=== PATIENT | male | born 1990 | race American Indian/Alaskan Native ===

== ENCOUNTER 2018-08-22 03:58 | Emergency (ER) | payer OTHER ==
[2018-08-22 04:06] VITALS: BP 120/66
--- NOTE | 2018-08-22 04:53 | XRay Report ---
PROCEDURE: XR ANKLE 2V LT HISTORY: pain and swelling FINDINGS: AP and lateral views of the left ankle were acquired. No fracture is seen in the left ankle . There is lateral soft tissue swelling. IMPRESSION: No fracture is seen in the left ankle This document is electronically signed by Sen Carrillo MD., August 22 2018 04:51:41 AM ET
[2018-08-22] MEDS ORDERED: IBUPROFEN PO ONE ×2 (05:07→05:08)
[2018-08-22] MEDS ORDERED: NORCO 5/325 ONE (05:07)
[2018-08-22] MEDS ORDERED: NORCO 5/325 PO ONE (05:08)
--- NOTE | 2018-08-22 05:45 | Emergency Department Report ---
ED Lower Extremity HPI - General Chief Complaint: Extremity Injury, Lower Stated Complaint: ANKLE INJURY Time Seen by Provider: 08/22/18 05:06 Source: patient Mode of arrival: Ambulatory Limitations: No Limitations - Related Data Previous Rx's Medication Instructions Recorded Last Taken Type Cyclobenzaprine [Flexeril] 10 mg PO TID PRN #30 tablet 08/22/18 Unknown Rx Naproxen Sodium [Naproxen Sodium 500 mg PO BID PRN #30 tablet 08/22/18 Unknown Rx 550mg] Allergies Allergy/AdvReac Type Severity Reaction Status Date / Time No Known Allergies Allergy Verified 05/09/15 11:43 ED Review of Systems ROS: Stated complaint: ANKLE INJURY Other details as noted in HPI ED Past Medical Hx - Past Medical History Previous Medical History?: No - Surgical History Past Surgical History?: No - Social History Smoking Status: Former Smoker Substance Use Type: None - Medications Home Medications: Home Medications Medication Instructions Recorded Confirmed Last Taken Type Cyclobenzaprine [Flexeril] 10 mg PO TID PRN #30 tablet 08/22/18 Unknown Rx Naproxen Sodium [Naproxen Sodium 500 mg PO BID PRN #30 tablet 08/22/18 Unknown Rx 550mg] ED Physical Exam - General Limitations: No Limitations General appearance: alert, in no apparent distress - Head Head exam: Present: atraumatic, normocephalic - Eye Eye exam: Present: normal appearance, PERRL, conjunctival injection Pupils: Present: normal accommodation - ENT ENT exam: Present: normal exam, mucous membranes moist, TM's normal bilaterally. Absent: normal external ear exam - Neck Neck exam: Present: normal inspection, full ROM. Absent: tenderness, meningismus, lymphadenopathy, thyromegaly - Respiratory Respiratory exam: Absent: rhonchi, stridor, chest wall tenderness - Cardiovascular Cardiovascular Exam: Present: regular rate, normal rhythm, normal heart sounds. Absent: systolic murmur, diastolic murmur, rubs, gallop - GI/Abdominal GI/Abdominal exam: Present: soft, normal bowel sounds. Absent: distended, tenderness, guarding, rebound, rigid, bruit, hernia - Rectal Rectal exam: Present: deferred, decreased rectal tone. Absent: prostate tenderness - exam: Present: normal inspection - Extremities Exam Extremities exam: Present: normal inspection, full ROM, normal capillary refill. Absent: tenderness, pedal edema, joint swelling, calf tenderness - Back Exam Back exam: Present: normal inspection, full ROM. Absent: tenderness, CVA tenderness (R), CVA tenderness (L), muscle spasm, paraspinal tenderness, vertebral tenderness, rash noted - Neurological Exam Neurological exam: Present: alert, oriented X3, CN II-XII intact, abnormal gait, reflexes normal. Absent: motor sensory deficit - Expanded Neurological Exam Expanded Patient oriented to: Present: person, place, time Speech: Present: fluid speech Cranial nerves: EOM's Intact: Normal, Gag Reflex: Normal, Tongue Deviation: Normal, Nystagmus: Normal, Facial Sensation: Normal Sensory exam: Lower Extremity Light Touch: Normal, Lower Extremity Pin Prick: Normal, Lower Extremity Temperature: Normal, LE 2 Point Discrimination: Normal Motor strength exam: RUE: 5, LUE: 5, RLE: 5, LLE: 5 DTR: ankle (R): 2+, ankle (L): 2+ Best Eye Response ([place]): (4) open spontaneously Best Motor Response ([place]): (6) obeys commands Best Verbal Response ([place]): (5) oriented [place] Total: 15 ED Course Vital Signs 08/22/18 04:01 Temperature 99.0 F Pulse Rate 86 Respiratory 16 Rate Blood Pressure 120/66 O2 Sat by Pulse 99 Oximetry ED Lower Extremity MDM - Radiology Data Radiology results: report reviewed, image reviewed Patient: BILL SANDOVAL III MR#: [id number] : 1990 Acct:[id number] Age/Sex: 28 / M ADM Date: 08/22/18 Loc: ED Attending Dr: Ordering Physician: ED MD RAN Date of Service: 08/22/18 Procedure(s): XR ankle 2V LT Accession Number(s): [id number] cc: ED MD RAN Fluoro Time In Minutes: PROCEDURE: XR ANKLE 2V LT HISTORY: pain and swelling FINDINGS: AP and lateral views of the left ankle were acquired. No fracture is seen in the left ankle. There is lateral soft tissue swelling. IMPRESSION: No fracture is seen in the left ankle This document is electronically signed by Sen Carrillo MD., August 22 2018 04:51:41 AM ET Transcribed By: BLANCA Dictated By: SEN CARRILLO MD Electronically Authenticated By: SEN CARRILLO MD Signed Date/Time: 08/22/18 0453 DD/ 0 TD/TT: 08/22/18 044 - Medical Decision Making this is an ankle sprain plan : ankle stirup , crutches follow up with ortho as directed return to ed if symptoms worsen. , spacing approprriate via splint check pt demonstrates safe use of scuture. plan dc to home with rx for nsaid, muscle relaxant, analgesic balm, pt for dc to home in stable condition at this time.. Critical care attestation.: If time is entered above; I have spent that time in minutes in the direct care of this critically ill patient, excluding procedure time. ED Disposition Clinical Impression: Ankle sprain Qualifiers: Encounter type: initial encounter Involved ligament of ankle: other ligament Laterality: left Qualified Code(s): S93.492A - Sprain of other ligament of left ankle, initial encounter Disposition: DC-01 TO HOME OR SELFCARE Is pt being admited?: No Does the pt Need Aspirin: No Condition: Undetermined Instructions: Ankle Sprain (ED), Osteoarthritis (ED) Prescriptions: Cyclobenzaprine [Flexeril] 10 mg PO TID PRN #30 tablet PRN Reason: Muscle Spasm Naproxen Sodium [Naproxen Sodium 550mg] 500 mg PO BID PRN #30 tablet PRN Reason: Pain , Severe (7-10) Referrals: NGUYEN HEREDIA MD [Primary Care Provider] - 3-5 Days Forms: Work/School Release Form(ED) Time of Disposition: 06:25
[2018-08-22] MEDS ORDERED: PERCOCET 5/325 PO ONE (06:40)
[2018-08-22] MEDS ORDERED: PERCOCET 5/325 ONE (06:44)
== END 2018-08-22 07:01 | disposition home or self-care (01) ==
LOC: ED 03:58
DX: S93.492A Sprain of other ligament of left ankle, initial encounter (principal); Z87.891 Personal history of nicotine dependence; X58.XXXA Exposure to other specified factors, initial encounter; Y93.89 Activity, other specified; Y92.89 Other specified places as the place of occurrence of the external cause; Y99.8 Other external cause status